=== PATIENT | female | born 1980 | race Caucasian/White ===

== ENCOUNTER 2016-09-12 08:44 | Day surgery (SDC) | payer MEDICAID ==
--- NOTE | 2016-09-12 07:14 | PCM.HP ---
H&P History of Present Illness - General Date of Service: 09/12/16 Source of Information: Patient History Limitations: Reports: No limitations - History of Present Illness Initial Comments - Free Text/Narative: CC : Hemorrhoids HPI The patient is a 35-year-old female referred by Ivon Yancey NP for hemorrhoid evaluation. Patient is known to the clinic. Dr. Giles completed a stab phlebectomy on a left lower leg vein 03/2014 I last saw the patient 08/06/16. She denies any changes since that visit. she did have an enlarged hemorrhoidal skin tag at that visit vs. slightly enlarged hemorrhoid. I did recommend conservative hemorrhoid therapy until endoscopy. She also reported reflux/heartburn. GERD/gastritis diet and prn Zantac were recommended. Has had hemorrhoids since first child at 16, have gotten worse. Will still have rectal bleeding off and on with increased stooling. In May had blood "gushing for a week." Had an enlarged hemorrhoid at that time. Was told she had an internal hemorrhoid at her last visit. Stools were soft at that time. Had lots of blood in the toilet at that time. Has tried Tucks, sitz baths, Aquaphor , without relief. Hemorrhoids are not painful. She can feel them when she sits. She feels pressure. A little dizziness when she had the large volume rectal bleeding. This has resolved. Has no rectal pain now, only with frequent stooling. The patient denies any constipation/ diarrhea. Uncertain if she had hematochezia in May. NO: melena. Has hx of blood on tissue paper, in May or with more frequent stools. Has internal and external hemorrhoids. Has 3 soft, brown, formed, BMs daily. Bowel movements are described as regular and easy to pass. No unintentional weight loss. No change in stool caliber. Denies history of ulcerative colitis or Crohn's disease. Denies any family history of inflammatory bowel disease or GI cancers.Last colonoscopy was never. . Reflux, heartburn after stopping Paxil, Taking Tums daily. Spicy foods/tomatoes worsen symptoms or really anything with worsen symptoms lately. NO: nausea, vomiting, or dysphagia. Last mammogram was never. Family hx of breast cancer in paternal grandmother. - Related Data Allergies/Adverse Reactions: Allergies Allergy/AdvReac Type Severity Reaction Status Date / Time levofloxacin [From Levaquin] Allergy Rash Verified 09/11/16 16:35 Home Medications: Home Meds Multivitamin [Multi-Vitamin Daily] 1 tab PO DAILY 03/22/14 [History] Ondansetron [Zofran ODT] 4 mg PO Q6H PRN #30 tab.dis 03/23/14 [Rx] Fluticasone Propionate [Flonase] 1 spray NASBOTH ASDIRECTED PRN 09/11/16 [ History] LORazepam [Ativan] 1 mg PO ASDIRECTED PRN 09/11/16 [History] Levonorgestrel [Mirena] 1 each VAG ASDIRECTED 09/11/16 [History] Past Medical History HEENT History: Reports: Other (see below) Other HEENT History: episcleritis, glasses Cardiovascular History: Reports: Other (see below) Other Cardiovascular History: varicose veins with phlebectomy to left lower leg Respiratory History: Reports: None, Other (see below) (sleep apnea) Gastrointestinal History: Reports: Other (see below) Other Gastrointestinal History: acid reflux Genitourinary History: Reports: None 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: Musculoskeletal History: Reports: None Neurological History: Reports: None Psychiatric History: Reports: None Endocrine/Metabolic History: Reports: Obesity/BMI 30+ Hematologic History: Reports: None Immunologic History: Reports: None Oncologic (Cancer) History: Reports: None Dermatologic History: Reports: None - Past Surgical History Head Surgeries/Procedures: Reports: None HEENT Surgical History: Reports: Adenoidectomy, Tonsillectomy Social & Family History - Tobacco Use Smoking Status *Q: Never Smoker - Alcohol Use Days Per Week of Alcohol Use: 0 Number of Drinks Per Day: 0 Total Drinks Per Week: 0 - Recreational Drug Use Recreational Drug Use: No Drug Use in Last 12 Months: No H&P Review of Systems - Review of Systems: Review Of Systems: See Below Free Text/Narrative: Denies any exertional chest pain or shortness of breath. No history of any easy bleeding or bruising. No personal or familial history of clotting or bleeding disorders. No history of anesthetic complications, PONV. No history of familial anesthetic complications. Denies presence/history of chest pain, palpitations, lower extremity edema, dyspnea, orthopnea, claudication, wheezing. Did have a sleep study that showed obstructive sleep apnea. NO: chronic cough, upper respiratory symptoms in the last two weeks. No history of blood thinner use. No history of anemia.. No history of seizure or stroke. No history of fever, chills, or nightsweats. No prior cardiology or pulmonology evaluation. All other systems reviewed and were negative except as per history of present illness. General: Reports: no symptoms HEENT: Reports: no symptoms Pulmonary: Reports: No Symptoms Cardiovascular: Reports: no symptoms Gastrointestinal: Reports: Other (see HPI) Genitourinary: Reports: no symptoms Musculoskeletal: Reports: no symptoms Skin: Reports: no symptoms Psychiatric: Reports: no symptoms Neurological: Reports: No Symptoms Hematologic/Lymphatic: Reports: no symptoms Immunologic: Reports: no symptoms Exam - Exam Exam: See Below - Exam General: alert, oriented HEENT: Conjunctiva clear, Hearing intact Lungs: Other (see anesthesia assessement) Cardiovascular: other (see anesthesia assessment) Abdomen: soft. No: distention Extremities: normal inspection. No: clubbing, cyanosis *Q Meaningful Use (ADM) - VTE *Q VTE Criteria *Q: - Stroke *Q Stroke Criteria *Q: - AMI *Q AMI Criteria *Q: Problem List Initiated/Reviewed/Updated: Yes Orders Last 24hrs: Active Orders 24 hr Category Date Time Status Peripheral IV Care [RC] . DIRECTED Care 09/12/16 00:01 Active Verify Patient Consent Obtain [RC] ASDIRECTED Care 09/12/16 00:01 Active HCG QUALITATIVE,URINE [URCHEM] Stat Lab 09/12/16 00:01 Uncollected Lactated Ringers [Ringers, Lactated] 1,000 ml Med 09/12/16 00:01 Active IV ASDIRECTED Lidocaine 1%/Sod Bicarbonate [Buffered Lidocaine 1% in Med 09/12/16 00:01 Active NS 8.4%] 0.25 ml IV ONETIME PRN Sodium Chloride 0.9% [Saline Flush] Med 09/12/16 00:01 Active 10 ml FLUSH ASDIRECTED PRN Medication Administration Instruction [OM.PC] Routine Oth 09/12/16 00:01 Ordered Peripheral IV Insertion Adult [OM.PC] Routine Oth 09/12/16 00:01 Ordered Medication Orders Lactated Ringer's (Ringers, Lactated) 1,000 mls @ 125 mls/hr IV ASDIRECTED YEIMY Stop: 09/12/16 23:00 Lidocaine/Sodium Bicarbonate (Buffered Lidocaine 1% In Ns 8.4%) 0.25 ml IV ONETIME PRN PRN Reason: Prior to IV Start Stop: 09/12/16 18:00 Sodium Chloride (Saline Flush) 10 ml FLUSH ASDIRECTED PRN PRN Reason: Keep Vein Open Stop: 09/12/16 18:00 Assessment/Plan Comment:: 35yr female with rectal bleeding, hx of internal hemorrhoids, external hemorrhoidal skin tag versus slightly enlarged hemorrhoid, reflux, heartburn, need for EGD, diagnostic colonoscopy with excision of hemorrhoidal skin tag and possible banding of internal hemorrhoids Patient can perform 4 METS of physical activity without chest pain or shortness of breath. Recent diagnosis of sleep apnea PLAN: We discussed performing a diagnostic EGD and diagnostic colonoscopy with excision of hemorrhoidal skin tag, possible banding of internal hemorrhoids. We discussed the procedure and post operative expectations. Patient has completed full colonoscopy prep. . This procedure will be done today at [facility], due to BMI of 53.52. Lluvia Hall NP -C General Surgery
[~2016-09-12 08:44] MED LIST: Lactated Ringers 1,000 ML IV SCH; Lidocaine 1%/Sod Bicarbonate in NS 8.4% 1 ML Syringe IV PRN; Sodium Chloride 0.9% 10 ML Syringe FLUSH PRN
--- NOTE | 2016-09-12 10:06 | PCM.PREANE ---
Preanesthetic Assessment - Physical Assessment Height: 1.68 m Weight: 147.871 kg - Lab Values: Laboratory Last Values Urine HCG, Qual Negative (NEGATIVE) 09/12/16 09:27 - Allergies Allergies/Adverse Reactions: Allergies Allergy/AdvReac Type Severity Reaction Status Date / Time levofloxacin [From Levaquin] Allergy Rash Verified 09/11/16 16:35 PreAnesthesia Questionnaire HEENT History: Reports: Other (see below) Other HEENT History: episcleritis, glasses Cardiovascular History: Reports: Other (see below) Other Cardiovascular History: varicose veins with phlebectomy to left lower leg Respiratory History: Reports: None Gastrointestinal History: Reports: Other (see below) Other Gastrointestinal History: acid reflux Genitourinary History: Reports: None 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: Musculoskeletal History: Reports: None Neurological History: Reports: None Psychiatric History: Reports: None Endocrine/Metabolic History: Reports: Obesity/BMI 30+ Hematologic History: Reports: None Immunologic History: Reports: None Oncologic (Cancer) History: Reports: None Dermatologic History: Reports: None - Past Surgical History Head Surgeries/Procedures: Reports: None HEENT Surgical History: Reports: Adenoidectomy, Tonsillectomy - SUBSTANCE USE Smoking Status *Q: Never Smoker Second Hand Smoke Exposure: No Days Per Week of Alcohol Use: 0 Number of Drinks Per Day: 0 Total Drinks Per Week: 0 Recreational Drug Use History: No - HOME MEDS Home Medications: Home Meds Multivitamin [Multi-Vitamin Daily] 1 tab PO DAILY 03/22/14 [History] Ondansetron [Zofran ODT] 4 mg PO Q6H PRN #30 tab.dis 03/23/14 [Rx] Fluticasone Propionate [Flonase] 1 spray NASBOTH ASDIRECTED PRN 09/11/16 [ History] LORazepam [Ativan] 1 mg PO ASDIRECTED PRN 09/11/16 [History] Levonorgestrel [Mirena] 1 each VAG ASDIRECTED 09/11/16 [History] - CURRENT (IN HOUSE) MEDS Current Meds: Current Medications Lactated Ringer's (Ringers, Lactated) 1,000 mls @ 125 mls/hr IV ASDIRECTED YEIMY Stop: 09/12/16 23:00 Last Admin: 09/12/16 09:40 Dose: 125 mls/hr Lidocaine/Sodium Bicarbonate (Buffered Lidocaine 1% In Ns 8.4%) 0.25 ml IV ONETIME PRN PRN Reason: Prior to IV Start Stop: 09/12/16 18:00 Last Admin: 09/12/16 09:40 Dose: 0.25 ml Sodium Chloride (Saline Flush) 10 ml FLUSH ASDIRECTED PRN PRN Reason: Keep Vein Open Stop: 09/12/16 18:00 Preanesthetic Assessment - ANESTHESIA/TRANSFUSION/FAMILY HX Anesthesia/Transfusion History: No Prior Transfusion(s), Prior Anesthesia Type of Anesthesia Reaction: Reports: Excessive Nausea/Vomiting Family History of Anesthesia Reaction: No Intubation History: Unknown Type of Transfusion Reactions: Reports: Unknown - REVIEW OF SYSTEMS Constitutional: Reports: no symptoms 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 Respiratory: Reports: no symptoms Cardiovascular: Reports: no symptoms GI: Reports: no symptoms Other: Reports: None - PHYSICAL ASSESSMENT HR: 67 O2 Sat by Pulse Oximetry: 97 RR: 16 BP: 107/54 Temp: 36.7 C Height: 1.68 m Weight: 147.871 kg NPO Status Date: 09/11/16 NPO Status Time: 21:30 ASA Class: 2 Mental Status: Alert & Oriented x3 Airway Class: Mallampati = 2 Dentition: Reports: Normal Dentition Thyro-Mental Finger Breadths: 3 Mouth Opening Finger Breadths: 3 ROM/Head Extension: Full Respiratory Status: lungs clear to auscultation bilaterally Cardiovascular Status: regular rate & rhythm, normal S1, S2, no murmur, blood pressure WNL - LAB Values: Laboratory Last Values Urine HCG, Qual Negative (NEGATIVE) 09/12/16 09:27 - ALLERGIES Allergies/Adverse Reactions: Allergies Allergy/AdvReac Type Severity Reaction Status Date / Time levofloxacin [From Levaquin] Allergy Rash Verified 09/11/16 16:35 - BLOOD Blood Available: No Product(s) Available: None - ANESTHESIA PLAN Preop Beta Sandip: No Anesthesia Type Planned: MAC - ACKNOWLEDGEMENTS Pt an Appropriate Candidate for the Planned Anesthesia: Yes Alternatives and Risks of Anesthesia Discussed w Pt/Guardian: Yes Pt/Guardian Understands and Agrees with Anesthesia Plan: Yes
[2016-09-12] MEDS ORDERED: Propofol 200 MG/20 ML SDV ONE ×2 (10:55→11:30)
[2016-09-12] MEDS ORDERED: Lidocaine 1% 4 ML ONE (10:55)
[2016-09-12] MEDS ORDERED: Midazolam 1 MG/ML 2 ML SDV ONE (10:55)
[2016-09-12] MEDS ORDERED: fentaNYL 100 MCG/2 ML SDV ONE (10:55)
--- NOTE | 2016-09-12 11:40 | PCM48HPAN ---
Post Anesthesia Note - EVALUATION WITHIN 48HRS OF ANESTHETIC Vital Signs in Normal Range: Yes Patient Participated in Evaluation: Yes Respiratory Function Stable: Yes Airway Patent: Yes Cardiovascular Function Stable: Yes Hydration Status Stable: Yes Pain Control Satisfactory: Yes Nausea and Vomiting Control Satisfactory: Yes Mental Status Recovered: Yes
--- NOTE | 2016-09-12 11:41 | PCM.OPNOTE ---
- General Post-Op/Procedure Note Date of Surgery/Procedure: 09/12/16 Operative Procedure(s): 1. Diagnostic EGD with cold forceps biopsy. 2. Diagnostic colonoscopy with cold forceps polypectomy and hemorrhoidal banding Pre Op Diagnosis: Heartburn, rectal bleeding, possible hematochezia Post-Op Diagnosis: Gastritis, splenic flexure colon polyp, external hemorrhoids , internal hemorrhoids grade 2, mild diverticulosis Anesthesia Technique: MAC Primary Surgeon: Daphne Giles Anesthesia Provider: Kings Edwards Pathology: 1. Small bowel biopsy 2. Antral biopsy 3. Distal esophageal biopsy 4. Splenic flexure colon polyp Fluid Replacement, Intraop: 400 (mL crystalloid) EBL in mLs: 1 Complications: None Condition: Good Free Text/Narrative:: INDICATION FOR PROCEDURE: The patient is a 35-year-old woman referred by PATRICIA Black for hemorrhoidal evaluation. The patient has been having rectal bleeding. The patient is also have persistent heartburn and taking Tums daily. She does have a recent history of rectal pain, however that is improved today. She has never had an EGD or colonoscopy. Performing a colonoscopy and EGD and the associated risks of the procedures had been discussed with the patient. The patient found these risks acceptable and agreed to proceed. DESCRIPTION OF PROCEDURE: The patient was taken to the operating room and placed in the left lateral decubitus position. After induction of adequate sedation, a bite block was placed. A standard Olympus gastroscope was inserted into the oropharynx and guided down the esophagus without difficulty. The gastroesophageal junction was appreciated at 36 cm from the teeth. There was no evidence of stricture or esophageal ulcerations. The scope was advanced into the stomach, and there was mild gastritis. The scope was passed into the proximal jejunum and the duodenum which were unremarkable. There were no petechiae or ulcerations. The proximal jejunum was grossly normal in appearance. Multiple cold forceps biopsies were obtained of the proximal jejunum and duodenum. The scope was withdrawn into the antrum, and additional cold forceps biopsies were obtained. The remainder of the gastric body was examined, and there were no other abnormalities. The scope was retroflexed, and there was no evidence of hiatal hernia. The scope was straightened and withdrawn to the GE junction. Additional cold forceps biopsies were obtained of the distal esophagus. The scope was withdrawn through the remainder of the esophagus and no further abnormalities were noted. The posterior oropharynx was grossly normal in appearance. The scope was fully withdrawn and attention was then turned to the colonoscopy. A digital rectal exam was performed which showed a small anterior hemorrhoidal skin tag, but posteriorly there was an enlarged external hemorrhoid. An Olympus colonoscope was inserted into the rectum and guided under direct visualization to the appendiceal orifice and ileocecal valve. The scope was then slowly withdrawn through the colon. The quality of the prep was excellent. There was no evidence of angiodysplasias. There was a sessile small polyp at the splenic flexure, this was removed using cold forceps. There was mild diverticulosis at the rectosigmoid junction. The scope was withdrawn into the rectum and retroflexed. There was some prominence of the patient's internal hemorrhoids, hemorrhoidal banding was performed. The scope was straightened, the colon was desufflated, and the scope was withdrawn. The patient was awakened from sedation and transferred to the recovery room in stable condition having tolerated the procedure well. POSTOPERATIVE PLAN: I discussed with the patient's family my intraoperative findings and recommendations. The patient will follow up in approximately 7-10 days to discuss pathology and how their symptoms are progressing. The patient is to start taking her Ranitidine 150 mg daily. I have asked the patient to follow a GERD\gastritis diet. Hemorrhoidal banding instructions were also provided. The patient is to call with any worsening of symptoms or questions prior to the appointment.
[2016-09-12 11:44] VITALS: BP 115/53
[2016-09-12] MEDS ORDERED: Lactated Ringers 1,000 ML ONE (11:44)
== END 2016-09-12 12:11 | disposition home or self-care (01) ==
LOC: JD.SDS 08:44
PROVIDERS: ATTEND Surgery
DX: K29.50 Unspecified chronic gastritis without bleeding (principal); K20.9 Esophagitis, unspecified; K63.5 Polyp of colon; K57.30 Diverticulosis of large intestine without perforation or abscess without bleeding; Z88.1 Allergy status to other antibiotic agents
CPT/HCPCS: 43239; 45380; 46946; 81025; J2250; J3010; J7120; 00810; J2704

== ENCOUNTER 2016-10-31 09:07 | Day surgery (SDC) | payer MEDICAID ==
[~2016-10-31 09:07] MED LIST changes: +cefOXitin 2 GM in Premix Bag 1 BAG IV ONE
--- NOTE | 2016-10-31 09:14 | PCM.OPNOTE ---
- General Post-Op/Procedure Note Date of Surgery/Procedure: 10/31/16 Operative Procedure(s): Ligasure hemorrhoidectomy with excision of left thigh skin tag Pre Op Diagnosis: Grade II internal hemorrhoids, enlarged external hemorrhoids Post-Op Diagnosis: Same Anesthesia Technique: General ET tube, Local Primary Surgeon: Daphne Giles Anesthesia Provider: Huong Maria Auto Fleet Maintenance Manager: Soo Padilla Auto Fleet Maintenance Manager: Lluvia Hall Fluid Replacement, Intraop: 1,600 (mL crystalloid ) EBL in mLs: 5 Complications: None Condition: Good Free Text/Narrative:: INDICATION FOR PROCEDURE: The patient is a 35-year-old woman who I had seen in referral by PATRICIA Black for evaluation of hemorrhoids. The patient had undergone diagnostic colonoscopy and was noted to have a significantly enlarged external and internal hemorrhoids in August. Hemorrhoidal banding was performed and the patient was placed on a hemorrhoidal care regimen, however her hemorrhoids had failed to resolve completely and she was still fairly symptomatic from them. Hemorrhoidectomy was discussed with the patient and she desired to proceed. DESCRIPTION OF PROCEDURE: The patient was taken to the operating room and placed in the left lateral decubitus position in slight jackknife after induction of general anesthesia. Cefoxitin was administered for antibiotic prophylaxis. The gluteal and perianal area were prepped and draped in the usual sterile fashion with Betadine after tape was applied to retract the bilateral gluteus. There was a small skin tag present on the patient's proximal left posterior thigh. This was removed using electrocautery after injecting local anesthetic. This was not sent as specimen. Attention was then turned to the patient's hemorrhoids. The patient had an enlarged left lateral and right posterior hemorrhoid complexes. The right anterior hemorrhoidal complex was fairly unremarkable. The left lateral and right posterior internal and external hemorrhoidal complexes were grasped and elevated using Allis clamp. They were then excised using the LigaSure device. Hemostasis was confirmed. Local anesthetic was injected in a perianal block. Gelfoam soaked in thrombin was placed within the anal canal. Mesh panties with a pad and a dressing of 4 x 4's was placed. The patient was awakened from anesthesia, extubated and transferred to the recovery room in stable condition having tolerated the procedure well. Sponge and instrument counts were reported as correct at the end of the case. POSTOPERATIVE PLAN: The patient will follow up in approximately 2-3 weeks for a postoperative check. She has been given metronidazole ointment to apply 3 times daily for pain relief as well as dibucaine ointment. She is to perform sitz baths 3 times a day and as frequently as needed for pain relief. Percocet 5/325mg, #40, and senna-S have been provided as well as recommendations for continuation of MiraLAX to prevent any constipation. She is to call the office with any questions or concerns. She has been advised to anticipate some rectal bleeding. The skilled assistance of my assembler surgical garment, PATRICIA Puckett, was necessary because a qualified resident was not available. She participated in positioning of the patient, assistance with the procedure with retraction, and dressing application.
--- NOTE | 2016-10-31 09:21 | PCM.PREANE ---
Preanesthetic Assessment - Anesthesia/Transfusion/Family Hx Anesthesia History: Prior Anesthesia Reaction Type of Anesthesia Reaction: Excessive Nausea/Vomiting Family History of Anesthesia Reaction: No Transfusion History: No Prior Transfusion(s) Type of Transfusion Reactions: Reports: Unknown - Review of Systems General: No Symptoms Pulmonary: No Symptoms Cardiovascular: No Symptoms Gastrointestinal: No symptoms Neurological: No Symptoms Other: Reports: None - Physical Assessment NPO Status Date: 10/30/16 NPO Status Time: 22:00 Pulse: 59 O2 Sat by Pulse Oximetry: 100 Respiratory Rate: 16 Blood Pressure: 136/80 Temperature: 97.1 F Height: 5 ft 6 in Weight: 147.871 kg ASA Class: 2 Mental Status: Alert & Oriented x3 Airway Class: Mallampati = 2 Dentition: Reports: Normal Dentition Thyro-Mental Finger Breadths: 3 Mouth Opening Finger Breadths: 3 ROM/Head Extension: Full Lungs: Clear to auscultation, Normal respiratory effort Cardiovascular: Regular Rate, Regular Rhythm - Allergies Allergies/Adverse Reactions: Allergies Allergy/AdvReac Type Severity Reaction Status Date / Time levofloxacin [From Levaquin] Allergy Rash Verified 10/30/16 16:24 - Blood Blood Available: No - Anesthesia Plan Pre-Op Medication Ordered: None - Acknowledgements Anesthesia Type Planned: General Anesthesia Pt an Appropriate Candidate for the Planned Anesthesia: Yes Alternatives and Risks of Anesthesia Discussed w Pt/Guardian: Yes Pt/Guardian Understands and Agrees with Anesthesia Plan: Yes PreAnesthesia Questionnaire HEENT History: Reports: Other (See Below) Other HEENT History: episcleritis, glasses Cardiovascular History: Reports: Other (See Below) Other Cardiovascular History: varicose veins with phlebectomy to left lower leg Respiratory History: Reports: None, Sleep Apnea, Other (See Below) Gastrointestinal History: Reports: Gastritis, Hemorrhoids, Helicobacter Pylori, Other (See Below) Other Gastrointestinal History: intestinal metaplasia, esophagitis, diverticulosis Genitourinary History: Reports: None 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: Musculoskeletal History: Other Musculoskeletal History: plantar fasciitis Neurological History: Reports: None Psychiatric History: Reports: None, Depression Endocrine/Metabolic History: Reports: Obesity/BMI 30+ Hematologic History: Reports: None, Other (See Below) Other Hematologic History: stab phlebectomy Immunologic History: Reports: None Oncologic (Cancer) History: Reports: None Dermatologic History: Reports: None - Past Surgical History Head Surgeries/Procedures: Reports: None HEENT Surgical History: Reports: Adenoidectomy, Tonsillectomy GI Surgical History: Reports: Colonoscopy, EGD - SUBSTANCE USE Smoking Status *Q: Never Smoker Tobacco Use Within Last Twelve Months: No Second Hand Smoke Exposure: No Days Per Week of Alcohol Use: 0 Number of Drinks Per Day: 0 Total Drinks Per Week: 0 Recreational Drug Use History: No - HOME MEDS Home Medications: Home Meds Levonorgestrel [Mirena] 1 each VAG ASDIRECTED 09/11/16 [History] Ranitidine [Zantac] 150 mg PO BID #60 tab 09/12/16 [Rx] Celecoxib 200 mg PO DAILY 10/30/16 [History] Multivitamin [Multivitamins] 1 tab PO DAILY 10/30/16 [History] Naltrexone HCl/Bupropion HCl [Contrave ER 8-90 mg Tablet] 1 tab PO BID PRN 10/30 [History] Omeprazole 20 mg PO DAILY 10/30/16 [History] - CURRENT (IN HOUSE) MEDS Current Meds: Current Medications Lactated Ringer's (Ringers, Lactated) 1,000 mls @ 125 mls/hr IV ASDIRECTED YEIMY Stop: 10/31/16 23:00 Cefoxitin Sodium 2 gm/ Premix 50 mls @ 100 mls/hr IV ONETIME ONE Stop: 10/31/16 09:29 Lidocaine/Sodium Bicarbonate (Buffered Lidocaine 1% In Ns 8.4%) 0.25 ml IV ONETIME PRN PRN Reason: Prior to IV Start Stop: 10/31/16 18:00 Sodium Chloride (Saline Flush) 10 ml FLUSH ASDIRECTED PRN PRN Reason: Keep Vein Open Stop: 10/31/16 18:00
[2016-10-31] MEDS ORDERED: Bupivacaine 0.5%/EPINEPHrine 1:200,000 50 ML MDV ONE (09:22)
[2016-10-31] MEDS ORDERED: Lidocaine 1% with EPINEPHrine 1:100,000 20 ML MDV ONE (09:22)
[2016-10-31] MEDS ORDERED: Ondansetron 4 MG/2 ML SDV ONE (09:28)
[2016-10-31] MEDS ORDERED: Propofol 200 MG/20 ML SDV ONE (09:28)
[2016-10-31] MEDS ORDERED: ceFAZolin 1 GM Vial ONE (09:28)
[2016-10-31] MEDS ORDERED: Rocuronium 50 MG/5 ML Vial ONE (09:28)
[2016-10-31] MEDS ORDERED: fentaNYL 250 MCG/5 ML SDV ONE (09:29)
[2016-10-31] MEDS ORDERED: Scopolamine 1.5 MG Transdermal Patch TRDERM ONE (09:39)
[2016-10-31] MEDS ORDERED: Midazolam 1 MG/ML 2 ML SDV ONE (09:55)
[2016-10-31] MEDS ORDERED: Thrombin (Bovine) 5,000 Unit Kit ONE (10:47)
[2016-10-31] MEDS ORDERED: Metoclopramide 10 MG/2 ML SDV IVPUSH PRN (10:48)
[2016-10-31] MEDS ORDERED: Ondansetron 4 MG/2 ML SDV IVPUSH PRN (10:48)
[2016-10-31] MEDS ORDERED: fentaNYL 100 MCG/2 ML SDV IVPUSH PRN (10:48)
[2016-10-31] MEDS ORDERED: Dexamethasone 4 MG/ML 5 ML MDV ONE (11:09)
--- NOTE | 2016-10-31 11:30 | PCM.POSTAN ---
POST ANESTHESIA ASSESSMENT - MENTAL STATUS Mental Status: alert, oriented - VITAL SIGNS Pulse Rate: 77 SaO2: 100 Resp Rate: 16 Blood Pressure: 142/66 Temperature: 36.6 C - RESPIRATORY Respiratory Status: respiratory rate WNL, airway patent, O2 saturation stable, supplemental oxygen - CARDIOVASCULAR CV Status: pulse rate WNL, blood pressure stable - GASTROINTESTINAL GI Status: no symptoms - PAIN Pain Score: 0 - POST OP HYDRATION Hydration Status: adequate & stable
[2016-10-31] MEDS ORDERED: HYDROmorphone 0.5 MG/0.5 ML Syringe IVPUSH PRN (11:50)
[2016-10-31 12:43] VITALS: BP 118/66
== END 2016-10-31 13:05 | disposition home or self-care (01) ==
LOC: JD.SDS 09:07
PROVIDERS: ATTEND Surgery
DX: K64.4 Residual hemorrhoidal skin tags (principal); K64.1 Second degree hemorrhoids; K64.8 Other hemorrhoids; G47.33 Obstructive sleep apnea (adult) (pediatric); F32.9 Major depressive disorder, single episode, unspecified; E66.9 Obesity, unspecified
CPT/HCPCS: 46260; 81025; 88304; A9270; J0694; J1100; J2250; J2405; J3010; J7120; 00902; J0690; J2704

== ENCOUNTER 2017-05-26 19:44 | Emergency (ER) | payer MEDICAID ==
[2017-05-26 19:59] VITALS: BP 122/64
--- NOTE | 2017-05-26 20:01 | EDM.PDOC ---
ED HPI GENERAL MEDICAL PROBLEM - General Chief Complaint: Abdominal Pain Stated Complaint: PELVIC PAIN ON THE LEFT SIDE Time Seen by Provider: 05/26/17 19:59 - History of Present Illness INITIAL COMMENTS - FREE TEXT/NARRATIVE: 36-year-old female presents emergency room with a couple day history of worsening left lower quadrant pain. This is been getting worse the last couple days patient cannot recall what makes it worse she's having normal bowel movements. She has not noticed any blood in her stool. She denies being has not ED in place she has not had any fevers or chills. She has not had any associated nausea vomiting constipation diarrhea her periods have not been abnormal. Left Lower Abdomen Pain Score (Numeric/FACES): 2 - Related Data Allergies Allergy/AdvReac Type Severity Reaction Status Date / Time levofloxacin [From Levaquin] Allergy Rash Verified 05/26/17 19:59 Home Meds: Home Meds Celecoxib 200 mg PO DAILY 10/30/16 [History] Multivitamin [Multivitamins] 1 tab PO DAILY 10/30/16 [History] Omeprazole 20 mg PO DAILY 10/30/16 [History] Sulfamethoxazole/Trimethoprim [Bactrim Ds Tablet] 1 each PO Q12H #20 tablet 04/02 [Rx] metroNIDAZOLE [Flagyl] 500 mg PO Q8H #30 tablet 05/26/17 [Rx] Past Medical History HEENT History: Reports: Other (See Below) Other HEENT History: episcleritis, glasses Cardiovascular History: Reports: Other (See Below) Other Cardiovascular History: varicose veins with phlebectomy to left lower leg Respiratory History: Reports: None, Sleep Apnea, Other (See Below) Gastrointestinal History: Reports: Gastritis, Hemorrhoids, Helicobacter Pylori, Other (See Below) Other Gastrointestinal History: intestinal metaplasia, esophagitis, diverticulosis Genitourinary History: Reports: None TUB MENDER History: Reports: Musculoskeletal History: Other Musculoskeletal History: plantar fasciitis Neurological History: Reports: None Psychiatric History: Reports: None, Depression Endocrine/Metabolic History: Reports: Obesity/BMI 30+ Hematologic History: Reports: None, Other (See Below) Other Hematologic History: stab phlebectomy Immunologic History: Reports: None Oncologic (Cancer) History: Reports: None Dermatologic History: Reports: None - Past Surgical History Head Surgeries/Procedures: Reports: None HEENT Surgical History: Reports: Adenoidectomy, Tonsillectomy GI Surgical History: Reports: Colonoscopy, EGD Social & Family History - Tobacco Use Smoking Status *Q: Never Smoker Second Hand Smoke Exposure: No - Alcohol Use Days Per Week of Alcohol Use: 0 Number of Drinks Per Day: 0 Total Drinks Per Week: 0 - Recreational Drug Use Recreational Drug Use: No Drug Use in Last 12 Months: No ED ROS GENERAL - Review of Systems Review Of Systems: See Below Constitutional: Reports: No Symptoms HEENT: Reports: No Symptoms Respiratory: Reports: No Symptoms Cardiovascular: Reports: No Symptoms Endocrine: Reports: No Symptoms GI/Abdominal: Reports: Abdominal Pain. Denies: Black Stool, Bloody Stool, Constipation, Diarrhea, Nausea, Vomiting : Reports: No Symptoms Musculoskeletal: Reports: No Symptoms Skin: Reports: No Symptoms Neurological: Reports: No Symptoms Psychiatric: Reports: No Symptoms ED EXAM, GI/ABD - Physical Exam Exam: See Below Exam Limited By: No Limitations General Appearance: Alert, No Apparent Distress Eyes: Bilateral: Normal Appearance Respiratory/Chest: No Respiratory Distress, Lungs Clear, Normal Breath Sounds Cardiovascular: Regular Rate, Rhythm, No Edema, No Murmur GI/Abdominal Exam: Normal Bowel Sounds, Soft, Tender (Tenderness the left lower quadrant no rigidity rebound or guarding appreciated with this) Back Exam: CVA Tenderness (L), CVA Tenderness (R). No: Normal Inspection Extremities: No Pedal Edema Neurological: Alert, Oriented, Normal Cognition Course - Vital Signs Last Recorded V/S: Last Vital Signs Temp 36.4 C 05/26/17 19:54 Pulse 81 05/26/17 19:54 Resp 18 05/26/17 19:54 BP 122/64 05/26/17 19:54 Pulse Ox 100 05/26/17 19:54 - Orders/Labs/Meds Orders: Active Orders 24 hr Category Date Time Status Abdomen 2V AP Flat Upright [CR] Stat Exams 05/26/17 20:26 Taken Abdomen Pelvis w Cont [CT] Stat Exams 05/26/17 21:24 Taken metroNIDAZOLE [Flagyl] Med 05/26/17 23:49 Once 500 mg PO ONETIME ONE Medication Orders Metronidazole (Flagyl) 500 mg PO ONETIME ONE Stop: 05/26/17 23:50 Labs: Laboratory Tests 05/26/17 05/26/17 05/26/17 Range/Units 20:26 20:26 20:45 WBC 12.31 H (3.98-10.04) K/mm3 RBC 4.20 (3.98-5.22) M/mm3 Hgb 13.3 (11.2-15.7) gm/L Hct 39.0 (34.1-44.9) % MCV 92.9 (79.4-94.8) fl MCH 31.7 (25.6-32.2) pg MCHC 34.1 (32.2-35.5) g/dl RDW Std Deviation 43.3 (36.4-46.3) fL Plt Count 264 (182-369) K/mm3 MPV 7.9 L (9.4-12.3) fl Neutrophils % (Manual) 74 H (40-60) % Band Neutrophils % 0 (0-10) % Lymphocytes % (Manual) 22 (20-40) % Atypical Lymphs % 0 % Monocytes % (Manual) 2 (2-10) % Eosinophils % (Manual) 2 (0.7-5.8) % Basophils % (Manual) 0 L (0.1-1.2) Platelet Estimate Adequate RBC Morph Comment Normal Sodium (136-145) mEq/L Potassium (3.5-5.1) mEq/L Chloride (98-107) mEq/L Carbon Dioxide (21-32) mEq/L Anion Gap (5-15) BUN (7-18) mg/dL Creatinine (0.55-1.02) mg/dL Est Cr Clr Drug Dosing mL/min Estimated GFR (MDRD) (>60) mL/min BUN/Creatinine Ratio (14-18) Glucose (74-106) mg/dL Calcium (8.5-10.1) mg/dL Total Bilirubin (0.2-1.0) mg/dL AST (15-37) U/L ALT (14-59) U/L Alkaline Phosphatase (46-116) U/L Total Protein (6.4-8.2) g/dl Albumin (3.4-5.0) g/dl Globulin gm/dL Albumin/Globulin Ratio (1-2) Urine Color Yellow (Yellow) Urine Appearance Slt cloudy H (Clear) Urine pH 6.0 (5.0-8.0) Ur Specific Terrell > or = 1.030 (1.005-1.030) Urine Protein Negative (Negative) Urine Glucose (UA) Negative (Negative) Urine Ketones Negative (Negative) Urine Occult Blood Trace-lysed H (Negative) Urine Nitrite Negative (Negative) Urine Bilirubin Negative (Negative) Urine Urobilinogen 0.2 (0.2-1.0) Ur Leukocyte Esterase Negative (Negative) Urine RBC 5-10 H (0-5) /hpf Urine WBC 0-5 (0-5) /hpf Ur Epithelial Cells 5-10 H (0-5) /hpf Urine Bacteria Few (FEW) /hpf Urine Mucus Moderate H (FEW) /hpf Urine HCG, Qual Negative (NEGATIVE) 05/26/17 Range/Units 20:45 WBC (3.98-10.04) K/mm3 RBC (3.98-5.22) M/mm3 Hgb (11.2-15.7) gm/L Hct (34.1-44.9) % MCV (79.4-94.8) fl MCH (25.6-32.2) pg MCHC (32.2-35.5) g/dl RDW Std Deviation (36.4-46.3) fL Plt Count (182-369) K/mm3 MPV (9.4-12.3) fl Neutrophils % (Manual) (40-60) % Band Neutrophils % (0-10) % Lymphocytes % (Manual) (20-40) % Atypical Lymphs % % Monocytes % (Manual) (2-10) % Eosinophils % (Manual) (0.7-5.8) % Basophils % (Manual) (0.1-1.2) Platelet Estimate RBC Morph Comment Sodium 143 (136-145) mEq/L Potassium 4.0 (3.5-5.1) mEq/L Chloride 106 (98-107) mEq/L Carbon Dioxide 27 (21-32) mEq/L Anion Gap 14.0 (5-15) BUN 13 (7-18) mg/dL Creatinine 1.0 (0.55-1.02) mg/dL Est Cr Clr Drug Dosing 72.11 mL/min Estimated GFR (MDRD) > 60 (>60) mL/min BUN/Creatinine Ratio 13.0 L (14-18) Glucose 86 (74-106) mg/dL Calcium 8.7 (8.5-10.1) mg/dL Total Bilirubin 0.3 (0.2-1.0) mg/dL AST 18 (15-37) U/L ALT 30 (14-59) U/L Alkaline Phosphatase 105 (46-116) U/L Total Protein 7.3 (6.4-8.2) g/dl Albumin 3.5 (3.4-5.0) g/dl Globulin 3.8 gm/dL Albumin/Globulin Ratio 0.9 L (1-2) Urine Color (Yellow) Urine Appearance (Clear) Urine pH (5.0-8.0) Ur Specific Terrell (1.005-1.030) Urine Protein (Negative) Urine Glucose (UA) (Negative) Urine Ketones (Negative) Urine Occult Blood (Negative) Urine Nitrite (Negative) Urine Bilirubin (Negative) Urine Urobilinogen (0.2-1.0) Ur Leukocyte Esterase (Negative) Urine RBC (0-5) /hpf Urine WBC (0-5) /hpf Ur Epithelial Cells (0-5) /hpf Urine Bacteria (FEW) /hpf Urine Mucus (FEW) /hpf Urine HCG, Qual (NEGATIVE) Meds: Medications Generic Name Dose Route Start Last Admin Trade Name Freq PRN Reason Stop Dose Admin Metronidazole 500 mg 05/26/17 23:49 Flagyl PO 05/26/17 23:50 ONETIME ONE Discontinued Medications Generic Name Dose Route Start Last Admin Trade Name Freq PRN Reason Stop Dose Admin Diatrizoate Meglum/Diatrizoate Sod 90 ml 05/26/17 22:15 05/26/17 22:33 Gastrografin 37% PO 05/26/17 22:16 90 ml ONETIME ONE Administration Lactated Ringer's 1,000 mls @ 999 mls/hr 05/26/17 21:26 05/26/17 21:44 Ringers, Lactated IV 05/26/17 22:26 999 mls/hr .BOLUS ONE Administration Iopamidol 125 ml 05/26/17 22:15 05/26/17 22:33 Isovue-300 (61%) IVPUSH 05/26/17 22:16 125 ml ONETIME ONE Administration Trimethoprim/Sulfamethoxazole 1 tab 05/26/17 23:48 Septra Ds PO 05/26/17 23:49 ONETIME ONE - Re-Assessments/Exams Free Text/Narrative Re-Assessment/Exam: 05/26/17 23:50 CT shows an uncomplicated diverticulitis in the area of the sigmoid colon. With the patient being allergic to Levaquin she'll be started on Bactrim DS and Flagyl Departure - Departure Time of Disposition: 23:51 Disposition: Home, Self-Care 01 Clinical Impression: Diverticulitis - Discharge Information Prescriptions: metroNIDAZOLE [Flagyl] 500 mg PO Q8H #30 tablet Sulfamethoxazole/Trimethoprim [Bactrim Ds Tablet] 1 each PO Q12H #20 tablet Referrals: Ivon Yancey, NEWSWRITER [Primary Care Provider] - Forms: ED Department Discharge Additional Instructions: Return to the emergency room with any questions problems worsening symptoms. Follow-up he regular provider at the end of this week for recheck. He been started on 2 antibiotics one of them is Bactrim take one twice daily until all gone second one is Flagyl, or metronidazole take one 3 times daily until all gone. - My Orders Last 24 Hours: My Active Orders 05/26/17 20:26 Abdomen 2V AP Flat Upright [CR] Stat 05/26/17 21:24 Abdomen Pelvis w Cont [CT] Stat 05/26/17 23:49 metroNIDAZOLE [Flagyl] 500 mg PO ONETIME ONE - Assessment/Plan Last 24 Hours: My Active Orders 05/26/17 20:26 Abdomen 2V AP Flat Upright [CR] Stat 05/26/17 21:24 Abdomen Pelvis w Cont [CT] Stat 05/26/17 23:49 metroNIDAZOLE [Flagyl] 500 mg PO ONETIME ONE
[2017-05-26] MEDS ORDERED: Lactated Ringers 1,000 ML IV ONE (21:26)
[2017-05-26] MEDS ORDERED: Iopamidol 612 MG/ML 150 ML Bottle IVPUSH ONE (22:15)
[2017-05-26] MEDS ORDERED: Diatrizoate Meglumine/Diatrizoate Sodium 37% 120 ML Bottle PO ONE (22:15)
[2017-05-26] MEDS ORDERED: Sulfamethoxazole/Trimethoprim 800-160 MG Tab PO ONE (23:48)
[2017-05-26] MEDS ORDERED: metroNIDAZOLE 500 MG Tab PO ONE (23:49)
--- NOTE | 2017-05-27 07:52 | CR ---
Abdomen: Supine and upright views of the abdomen were obtained. Comparison: No prior abdominal x-ray. Bowel gas pattern appears normal. IUD is present within the pelvis. No abnormal calcifications or soft tissue abnormality is seen. Bony structures are unremarkable. Impression: 1. Incidental finding. Diagnostic code #2
--- NOTE | 2017-05-27 08:00 | CT ---
CT abdomen and pelvis Technique: Multiple axial sections were obtained from above the dome of the diaphragm inferiorly to the pubic symphysis. Intravenous and oral contrast has been given. Delayed images were also obtained through the bladder. Comparison: Prior abdominal x-ray performed earlier on the same day (8:41 PM). Findings: Mild inflammatory change and adjacent bowel wall thickening is seen near the junction of the descending and sigmoid colon. Findings most likely represent diverticulitis. No free fluid within the pelvis is seen. No other inflammatory change is identified. Small portion of the visualized lung bases are clear. Liver shows no focal parenchymal abnormality. Spleen measures at the upper limits of normal at 13.2 cm which is likely incidental. Adrenal glands show no nodule. Kidneys show symmetric contrast enhancement without hydronephrosis or mass. Aorta shows no aneurysmal dilatation. Pancreas is within normal limits. Gallbladder is contracted. Aorta shows no aneurysmal dilatation. No retroperitoneal adenopathy is seen. Appendix is seen which appears normal. No pelvic mass or adenopathy is seen. Delayed images show contrast within the distal ureters and within the bladder. Bone window settings were reviewed which appear within normal limits for the patient's age. Impression: 1. Findings compatible with mild diverticulitis at the junction of the sigmoid and descending colon. 2. IUD is present. 3. No additional abnormality is felt to be present on CT study of the abdomen and pelvis. Diagnostic code #3 Agree with preliminary report issued by [facility] ([facility] preliminary report dictated on 05/26/17, 11:45 PM Central Time)
== END 2017-05-27 00:08 | disposition home or self-care (01) ==
LOC: JD.ED 19:44
DX: K57.32 Diverticulitis of large intestine without perforation or abscess without bleeding (principal); Z79.1 Long term (current) use of non-steroidal anti-inflammatories (NSAID); Z79.899 Other long term (current) drug therapy; Z88.1 Allergy status to other antibiotic agents
CPT/HCPCS: 36415; 74020; 74177; 80053; 81001; 81025; 85025; 96360; 99284; A9270; J7120; Q9963; Q9967

== ENCOUNTER 2017-08-23 01:52 | Emergency (ER) | payer MEDICAID ==
[2017-08-23 02:07] VITALS: BP 106/58
[2017-08-23] MEDS ORDERED: Sodium Chloride 0.9% 10 ML Syringe FLUSH PRN (02:12)
[2017-08-23] MEDS ORDERED: Sodium Chloride 0.9% 1,000 ML IV SCH (02:15)
--- NOTE | 2017-08-23 03:02 | EDM.PDOC ---
ED HPI GENERAL MEDICAL PROBLEM - General Chief Complaint: Syncope Stated Complaint: DX W/INFLU B & PASSED OUT THIS AM Time Seen by Provider: 08/23/17 02:08 Source of Information: Reports: Patient History Limitations: Reports: No Limitations - History of Present Illness INITIAL COMMENTS - FREE TEXT/NARRATIVE: The patient says she was diagnosed with influenza yesterday and she was started on tamiflu. Early this morning she got up to use the restroom and she was lightheaded. She went into the bathroom and went and on the way back she passed out. She did not wet herself and she did not bite her tongue. She has no chest pain or shortness of breath. She did not hit her head or hurt her neck. This has never happened before. She feels like she has been eating and drinking okay. She has fever, chills and body aches. She has no nausea, vomiting or abdominal pain. Onset: Sudden Duration: Minutes: Severity: Moderate Improves with: Reports: None Worsens with: Reports: None Associated Symptoms: Reports: Fever/Chills. Denies: Chest Pain, Cough, Headaches, Nausea/Vomiting, Shortness of Breath - Related Data Allergies Allergy/AdvReac Type Severity Reaction Status Date / Time levofloxacin [From Levaquin] Allergy Rash Verified 08/23/17 02:07 Home Meds: Home Meds Oseltamivir [Tamiflu] 75 mg PO BID 08/23/17 [History] guaiFENesin/Codeine Phosphate [Cheratussin AC Syrup] 5 ml PO Q4HR PRN 08/23/17 [ History] Past Medical History HEENT History: Reports: Other (See Below) Other HEENT History: episcleritis, glasses Cardiovascular History: Reports: Other (See Below) Other Cardiovascular History: varicose veins with phlebectomy to left lower leg Respiratory History: Reports: Sleep Apnea, Other (See Below) Gastrointestinal History: Reports: Gastritis, Hemorrhoids, Helicobacter Pylori, Other (See Below) Other Gastrointestinal History: intestinal metaplasia, esophagitis, diverticulosis Genitourinary History: Reports: None DELIVERY MAN History: Reports: Musculoskeletal History: Other Musculoskeletal History: plantar fasciitis Neurological History: Reports: None Psychiatric History: Reports: Depression Endocrine/Metabolic History: Reports: Obesity/BMI 30+ Hematologic History: Reports: None, Other (See Below) Other Hematologic History: stab phlebectomy Immunologic History: Reports: None Oncologic (Cancer) History: Reports: None Dermatologic History: Reports: None - Past Surgical History Head Surgeries/Procedures: Reports: None HEENT Surgical History: Reports: Adenoidectomy, Tonsillectomy GI Surgical History: Reports: Colonoscopy, EGD Social & Family History - Family History Family Medical History: Noncontributory - Tobacco Use Smoking Status *Q: Never Smoker Second Hand Smoke Exposure: No - Caffeine Use Caffeine Use: Reports: None - Alcohol Use Days Per Week of Alcohol Use: 0 Number of Drinks Per Day: 0 Total Drinks Per Week: 0 - Recreational Drug Use Recreational Drug Use: No Drug Use in Last 12 Months: No ED ROS GENERAL - Review of Systems Review Of Systems: See Below Constitutional: Reports: Fever, Chills HEENT: Reports: No Symptoms Respiratory: Reports: No Symptoms Cardiovascular: Reports: Syncope. Denies: Chest Pain Endocrine: Reports: No Symptoms GI/Abdominal: Reports: No Symptoms, Mucous in Stool Musculoskeletal: Reports: No Symptoms Neurological: Reports: No Symptoms ED EXAM, DIZZINESS - Physical Exam Exam: See Below Exam Limited By: No Limitations General Appearance: Alert, No Apparent Distress Ears: Normal External Exam Nose: Normal Inspection Head Exam: Atraumatic, Normocephalic Neck: Normal Inspection Respiratory/Chest: No Respiratory Distress, Lungs Clear, Normal Breath Sounds Cardiovascular: Regular Rate, Rhythm, No Edema, No Murmur GI/Abdominal: Soft, Non-Tender, No Organomegaly, No Mass Neurological: Alert, No Motor/Sensory Deficits, Oriented x 3 EKG INTERPRETATION EKG Date: 08/23/17 Time: : Rhythm: NSR Rate (Beats/Min): 88 Russell: Normal P-Wave: Present QRS: Normal ST-T: Normal QT: Normal Course - Vital Signs Last Recorded V/S: Last Vital Signs Temp 98.4 F 08/23/17 02:04 Pulse 97 08/23/17 02:04 Resp 18 08/23/17 02:04 BP 106/58 L 08/23/17 02:04 Pulse Ox 98 08/23/17 02:04 Orthostatic Blood Pressure [ 103/58 Standing] Orthostatic Blood Pressure [ 108/64 Sitting] Orthostatic Blood Pressure [ 104/59 Supine] - Orders/Labs/Meds Orders: Active Orders 24 hr Category Date Time Status Cardiac Monitoring [RC] . DIRECTED Care 08/23/17 02:12 Active EKG Documentation Completion [RC] ASDIRECTED Care 08/23/17 02:13 Active Orthostatic Vital Signs [RC] ASDIRECTED Care 08/23/17 02:11 Active Peripheral IV Care [RC] . DIRECTED Care 08/23/17 02:13 Active Sodium Chloride 0.9% [Normal Saline] 1,000 ml Med 08/23/17 02:15 Active IV .BOLUS Sodium Chloride 0.9% [Saline Flush] Med 08/23/17 02:12 Active 10 ml FLUSH ASDIRECTED PRN Peripheral IV Insertion Adult [OM.PC] Stat Oth 08/23/17 02:12 Ordered EKG 12 Lead [EK] Stat Ther 08/23/17 02:13 Ordered Medication Orders Sodium Chloride (Normal Saline) 1,000 mls @ 1,000 mls/hr IV .BOLUS YEIMY Last Admin: 08/23/17 02:22 Dose: 1,000 mls/hr Sodium Chloride (Saline Flush) 10 ml FLUSH ASDIRECTED PRN PRN Reason: Keep Vein Open Last Admin: 08/23/17 02:22 Dose: 10 ml Labs: Laboratory Tests 08/23/17 08/23/17 Range/Units 02:18 02:18 WBC 8.63 (3.98-10.04) K/mm3 RBC 4.35 (3.98-5.22) M/mm3 Hgb 13.7 (11.2-15.7) gm/L Hct 39.8 (34.1-44.9) % MCV 91.5 (79.4-94.8) fl MCH 31.5 (25.6-32.2) pg MCHC 34.4 (32.2-35.5) g/dl RDW Std Deviation 44.9 (36.4-46.3) fL Plt Count 196 (182-369) K/mm3 MPV 8.3 L (9.4-12.3) fl Neut % (Auto) 67.7 (34.0-71.1) % Lymph % (Auto) 19.8 (19.3-51.7) % Sevier % (Auto) 11.8 (4.7-12.5) % Eos % (Auto) 0.5 L (0.7-5.8) Baso % (Auto) 0.1 (0.1-1.2) % Neut # (Auto) 5.84 (1.56-6.13) K/mm3 Lymph # (Auto) 1.71 (1.18-3.74) K/mm3 Sevier # (Auto) 1.02 H (0.24-0.36) K/mm3 Eos # (Auto) 0.04 (0.04-0.36) K/mm3 Baso # (Auto) 0.01 (0.01-0.08) K/mm3 Sodium 136 (136-145) mEq/L Potassium 3.7 (3.5-5.1) mEq/L Chloride 101 (98-107) mEq/L Carbon Dioxide 23 (21-32) mEq/L Anion Gap 15.7 H (5-15) BUN 9 (7-18) mg/dL Creatinine 0.8 (0.55-1.02) mg/dL Est Cr Clr Drug Dosing 90.13 mL/min Estimated GFR (MDRD) > 60 (>60) mL/min BUN/Creatinine Ratio 11.3 L (14-18) Glucose 101 (74-106) mg/dL Calcium 8.9 (8.5-10.1) mg/dL Total Bilirubin 0.5 (0.2-1.0) mg/dL AST 21 (15-37) U/L ALT 28 (14-59) U/L Alkaline Phosphatase 84 (46-116) U/L Total Protein 7.7 (6.4-8.2) g/dl Albumin 3.7 (3.4-5.0) g/dl Globulin 4.0 gm/dL Albumin/Globulin Ratio 0.9 L (1-2) Meds: Medications Generic Name Dose Route Start Last Admin Trade Name Freq PRN Reason Stop Dose Admin Sodium Chloride 1,000 mls @ 1,000 mls/hr 08/23/17 02:15 08/23/17 02:22 Normal Saline IV 1,000 mls/hr .BOLUS YEIMY Administration Sodium Chloride 10 ml 08/23/17 02:12 08/23/17 02:22 Saline Flush FLUSH 10 ml ASDIRECTED PRN Administration Keep Vein Open Discontinued Medications Generic Name Dose Route Start Last Admin Trade Name Freq PRN Reason Stop Dose Admin Sodium Chloride 1,000 mls @ 1,000 mls/hr 08/23/17 03:29 08/23/17 03:30 Normal Saline IV 08/23/17 04:28 1,000 mls/hr ONETIME ONE Administration - Re-Assessments/Exams Free Text/Narrative Re-Assessment/Exam: 08/23/17 03:02 I ordered an IV NS 1L bolus, labs and an EKG. She was orthostatic with her blood pressures. Her EKG shows a NSR with no acute changes. 08/23/17 04:59 Her CBC and CMP look good. 08/23/17 04:59 Her blood pressure went down to 85 systolic once so I ordered another liter of fluid and she feels better after that. I will see if we can discharge her. Departure - Departure Time of Disposition: 05:00 Disposition: Home, Self-Care 01 Condition: Good Clinical Impression: Dehydration, Influenza Syncope Qualifiers: Syncope type: unspecified Qualified Code(s): R55 - Syncope and collapse - Discharge Information Referrals: Ivon Yancey INTERFACE CONTROL OFFICER [Primary Care Provider] - Forms: ED Department Discharge Additional Instructions: Continue to take the tamiflu. Drink plenty of fluids. For the next few days when you get up out of bed or the couch take a minute and sit before you get up. This will allow your body time to adjust your blood pressure. Take motrin or tylenol for any fever or pain. Please return if you are worse. - My Orders Last 24 Hours: My Active Orders 08/23/17 02:11 Orthostatic Vital Signs [RC] ASDIRECTED 08/23/17 02:12 Cardiac Monitoring [RC] . DIRECTED Sodium Chloride 0.9% [Saline Flush] 10 ml FLUSH ASDIRECTED PRN Peripheral IV Insertion Adult [OM.PC] Stat 08/23/17 02:13 EKG Documentation Completion [RC] ASDIRECTED Peripheral IV Care [RC] . DIRECTED EKG 12 Lead [EK] Stat 08/23/17 02:15 Sodium Chloride 0.9% [Normal Saline] 1,000 ml IV .BOLUS - Assessment/Plan Last 24 Hours: My Active Orders 08/23/17 02:11 Orthostatic Vital Signs [RC] ASDIRECTED 08/23/17 02:12 Cardiac Monitoring [RC] . DIRECTED Sodium Chloride 0.9% [Saline Flush] 10 ml FLUSH ASDIRECTED PRN Peripheral IV Insertion Adult [OM.PC] Stat 08/23/17 02:13 EKG Documentation Completion [RC] ASDIRECTED Peripheral IV Care [RC] . DIRECTED EKG 12 Lead [EK] Stat 08/23/17 02:15 Sodium Chloride 0.9% [Normal Saline] 1,000 ml IV .BOLUS
[2017-08-23] MEDS ORDERED: Sodium Chloride 0.9% 1,000 ML IV ONE (03:29)
== END 2017-08-23 05:20 | disposition home or self-care (01) ==
LOC: JD.ED 01:52
DX: E86.0 Dehydration (principal); R55 Syncope and collapse; J11.1 Influenza due to unidentified influenza virus with other respiratory manifestations; F32.9 Major depressive disorder, single episode, unspecified; Z88.1 Allergy status to other antibiotic agents
CPT/HCPCS: 36415; 80053; 85025; 93005; 96360; 96361; 99284; J7040; J7050; 99283

== ENCOUNTER 2019-12-12 17:32 | Emergency (ER) | payer MEDICAID ==
[2019-12-12 18:42] VITALS: BP 134/71; PULSE 93
--- NOTE | 2019-12-12 19:06 | EDM.PDOC ---
ED HPI GENERAL MEDICAL PROBLEM - General Chief Complaint: SNELLER HAND Problem Stated Complaint: 8 WKS PG AND IS BLEEDING Time Seen by Provider: 12/12/19 17:36 Source of Information: Reports: Patient History Limitations: Reports: No Limitations - History of Present Illness INITIAL COMMENTS - FREE TEXT/NARRATIVE: Patient is a 38-year-old female G5, P3, last menstrual period October 05 who presents to the emergency department with vaginal spotting. She states she first had some last evening. Described as light pink spotting on the toilet paper. It resolved, however this evening prior to coming to the ER she had another episode of blood which was present when she wiped. Bleeding is not significant to require a pad. She only notices upon wiping. She has not had any recent sexual intercourse or partake in any exertional activity. States she did have an ultrasound at 7 weeks which was found to be normal. Denies any pelvic cramping or back pain. She has no dysuria,, vomiting, or diarrhea. She has a history of miscarriage approximately 2 years ago. - Related Data Allergies Allergy/AdvReac Type Severity Reaction Status Date / Time levofloxacin [From Levaquin] Allergy Severe Rash Verified 12/12/19 18:38 Home Meds: Home Meds Multivitamin [Daily Multiple Vitamin] 1 tab DAILY 11/23/17 [History] miSOPROStoL [Cytotec] 400 mcg PO ONETIME #2 tablet 12/12/19 [Rx] Past Medical History HEENT History: Reports: Other (See Below) Other HEENT History: episcleritis, glasses Cardiovascular History: Reports: Other (See Below) Other Cardiovascular History: varicose veins with phlebectomy to left lower leg Respiratory History: Reports: Sleep Apnea, Other (See Below) Gastrointestinal History: Reports: Gastritis, Hemorrhoids, Helicobacter Pylori, Other (See Below) Other Gastrointestinal History: intestinal metaplasia, esophagitis, diverticulosis Genitourinary History: Reports: None SNELLER HAND History: Reports: Other SNELLER HAND History: Musculoskeletal History: Other Musculoskeletal History: plantar fasciitis Neurological History: Reports: None Psychiatric History: Reports: Depression Endocrine/Metabolic History: Reports: Obesity/BMI 30+ Hematologic History: Reports: None, Other (See Below) Other Hematologic History: stab phlebectomy Immunologic History: Reports: None Oncologic (Cancer) History: Reports: None Dermatologic History: Reports: None - Past Surgical History Head Surgeries/Procedures: Reports: None HEENT Surgical History: Reports: Adenoidectomy, Tonsillectomy GI Surgical History: Reports: Colonoscopy, EGD Social & Family History - Family History Family Medical History: Noncontributory - Caffeine Use Caffeine Use: Reports: None ED ROS GENERAL - Review of Systems Review Of Systems: Comprehensive ROS is negative, except as noted in HPI. ED EXAM - Physical Exam Exam: See Below Exam Limited By: No Limitations General Appearance: Alert, WD/WN, No Apparent Distress Respiratory/Chest: No Respiratory Distress, Lungs Clear, Normal Breath Sounds, No Accessory Muscle Use, Chest Non-Tender Cardiovascular: Normal Peripheral Pulses, Regular Rate, Rhythm, No Edema, No Gallop, No JVD, No Murmur, No Rub GI/Abdominal Exam: Normal Bowel Sounds, Soft, Non-Tender, No Organomegaly, No Distention, No Abnormal Bruit, No Mass, Pelvis Stable Neurological: Alert, Oriented, CN II-XII Intact, Normal Cognition, Normal Gait, Normal Reflexes, No Motor/Sensory Deficits Psychiatric: Normal Affect, Normal Mood Skin Exam: Warm, Dry, Intact, Normal Color, No Rash Course - Vital Signs Last Recorded V/S: Last Vital Signs Temp 98.8 F 12/12/19 18:39 Pulse 93 12/12/19 18:39 Resp 16 12/12/19 18:39 BP 134/71 12/12/19 18:39 Pulse Ox 100 12/12/19 18:39 - Orders/Labs/Meds Labs: Laboratory Tests 12/12/19 12/12/19 12/12/19 Range/Units 19:10 19:16 19:16 WBC 10.24 H (3.98-10.04) K/mm3 RBC 4.28 (3.98-5.22) M/mm3 Hgb 13.5 (11.2-15.7) gm/dl Hct 40.5 (34.1-44.9) % MCV 94.6 D (79.4-94.8) fl MCH 31.5 (25.6-32.2) pg MCHC 33.3 (32.2-35.5) g/dl RDW Std Deviation 44.6 (36.4-46.3) fL Plt Count 292 D (182-369) K/mm3 MPV 8.1 L (9.4-12.3) fl Neut % (Auto) 56.5 (34.0-71.1) % Lymph % (Auto) 32.8 (19.3-51.7) % [place] % (Auto) 8.9 (4.7-12.5) % Eos % (Auto) 1.2 (0.7-5.8) Baso % (Auto) 0.3 (0.1-1.2) % Neut # (Auto) 5.79 (1.56-6.13) K/mm3 Lymph # (Auto) 3.36 (1.18-3.74) K/mm3 [place] # (Auto) 0.91 H (0.24-0.36) K/mm3 Eos # (Auto) 0.12 (0.04-0.36) K/mm3 Baso # (Auto) 0.03 (0.01-0.08) K/mm3 Sodium 138 (136-145) mEq/L Potassium 3.6 (3.5-5.1) mEq/L Chloride 103 (98-107) mEq/L Carbon Dioxide 23 (21-32) mEq/L Anion Gap 15.6 H (5-15) BUN 14 (7-18) mg/dL Creatinine 0.9 (0.55-1.02) mg/dL Est Cr Clr Drug Dosing 78.56 mL/min Estimated GFR (MDRD) > 60 (>60) mL/min BUN/Creatinine Ratio 15.6 (14-18) Glucose 88 (74-106) mg/dL Calcium 9.2 (8.5-10.1) mg/dL Total Bilirubin 0.3 (0.2-1.0) mg/dL AST 20 (15-37) U/L ALT 31 (14-59) U/L Alkaline Phosphatase 85 (46-116) U/L Total Protein 8.0 (6.4-8.2) g/dl Albumin 3.7 (3.4-5.0) g/dl Globulin 4.3 gm/dL Albumin/Globulin Ratio 0.9 L (1-2) HCG, Quant 8850.0 mIU/mL Urine Color Yellow (Yellow) Urine Appearance Clear (Clear) Urine pH 6.5 (5.0-8.0) Ur Specific Allen 1.020 (1.005-1.030) Urine Protein Negative (Negative) Urine Glucose (UA) Negative (Negative) Urine Ketones Negative (Negative) Urine Occult Blood 3+ H (Negative) Urine Nitrite Negative (Negative) Urine Bilirubin Negative (Negative) Urine Urobilinogen 0.2 (0.2-1.0) Ur Leukocyte Esterase Negative (Negative) Urine RBC 10-20 H (0-5) /hpf Urine WBC 0-5 (0-5) /hpf Ur Squamous Epith Cells 0-5 (0-5) /hpf Urine Bacteria Few (FEW) /hpf Urine Mucus Few (FEW) /hpf Blood Type 12/12/19 Range/Units 19:16 WBC (3.98-10.04) K/mm3 RBC (3.98-5.22) M/mm3 Hgb (11.2-15.7) gm/dl Hct (34.1-44.9) % MCV (79.4-94.8) fl MCH (25.6-32.2) pg MCHC (32.2-35.5) g/dl RDW Std Deviation (36.4-46.3) fL Plt Count (182-369) K/mm3 MPV (9.4-12.3) fl Neut % (Auto) (34.0-71.1) % Lymph % (Auto) (19.3-51.7) % [place] % (Auto) (4.7-12.5) % Eos % (Auto) (0.7-5.8) Baso % (Auto) (0.1-1.2) % Neut # (Auto) (1.56-6.13) K/mm3 Lymph # (Auto) (1.18-3.74) K/mm3 [place] # (Auto) (0.24-0.36) K/mm3 Eos # (Auto) (0.04-0.36) K/mm3 Baso # (Auto) (0.01-0.08) K/mm3 Sodium (136-145) mEq/L Potassium (3.5-5.1) mEq/L Chloride (98-107) mEq/L Carbon Dioxide (21-32) mEq/L Anion Gap (5-15) BUN (7-18) mg/dL Creatinine (0.55-1.02) mg/dL Est Cr Clr Drug Dosing mL/min Estimated GFR (MDRD) (>60) mL/min BUN/Creatinine Ratio (14-18) Glucose (74-106) mg/dL Calcium (8.5-10.1) mg/dL Total Bilirubin (0.2-1.0) mg/dL AST (15-37) U/L ALT (14-59) U/L Alkaline Phosphatase (46-116) U/L Total Protein (6.4-8.2) g/dl Albumin (3.4-5.0) g/dl Globulin gm/dL Albumin/Globulin Ratio (1-2) HCG, Quant mIU/mL Urine Color (Yellow) Urine Appearance (Clear) Urine pH (5.0-8.0) Ur Specific Allen (1.005-1.030) Urine Protein (Negative) Urine Glucose (UA) (Negative) Urine Ketones (Negative) Urine Occult Blood (Negative) Urine Nitrite (Negative) Urine Bilirubin (Negative) Urine Urobilinogen (0.2-1.0) Ur Leukocyte Esterase (Negative) Urine RBC (0-5) /hpf Urine WBC (0-5) /hpf Ur Squamous Epith Cells (0-5) /hpf Urine Bacteria (FEW) /hpf Urine Mucus (FEW) /hpf Blood Type B POSITIVE Meds: Medications Discontinued Medications Generic Name Dose Route Start Last Admin Trade Name Cade PRN Reason Stop Dose Admin Ibuprofen 600 mg 12/12/19 21:47 12/12/19 21:59 Motrin PO 12/12/19 21:48 600 mg ONETIME ONE Administration Misoprostol 800 mcg 12/12/19 22:00 Cytotec PO BID YEIMY Misoprostol 800 mcg 12/12/19 21:49 12/12/19 21:59 Cytotec PO 12/12/19 21:50 800 mcg ONETIME ONE Administration - Re-Assessments/Exams Free Text/Narrative Re-Assessment/Exam: 12/12/19 21:03 Transvaginal ultrasound unfortunately was absent for cardiac activity compatible with nonviable . hCG level was low at 8850 which is just over half of what it should be for her gestational age. We are still waiting for the results of her Rh/ABO. Results were discussed with the patient. She is inquiring if there is any way to expedite the process of miscarriage instead of waiting to see her SNELLER HAND on . Called and spoke with the on-call SNELLER HAND, Dr. Valencia. He stated that we can give her 800 mcg of Cytotec now and then send a prescription for 400 mcg of Cytotec to be taken tomorrow evening. He discussed that she will have severe cramping and bleeding associated with this. He recommended that we prescribe her Percocet to be taken every 6 hours and that she alternate that with Motrin every 6 hours as well. Recommended that we give RhoGam as indicated by her Rh factor. Patient should not be home alone in case she needs to return to the ER. Discussed this option with the patient and she would like to proceed with this. We will wait for the results of her Rh/ABO. 12/12/19 21:49 Patient's blood type is B+ so there is no indication for RhoGam. I will give her 800 mcg of Cytotec orally now in addition to a dose of Motrin. She will be given an [facility] prescription for Percocet and I sent a prescription for the remaining 400 mcg of Cytotec to [facility] as they are the only pharmacy open tomorrow. I emphasized to her that if she is saturating a pad an hour for 2 or more hours or if the pain becomes too severe, she should return to the emergency department. Also emphasized that she should not be home alone until the cramping and bleeding subsides. She states that she does not live alone and is in agreement with this plan. Recommend that she follow-up with Dr. Bright on Saturday. Discharge instructions as documented. Departure - Departure Time of Disposition: 21:52 Disposition: Home, Self-Care 01 Condition: Good Clinical Impression: Non-viable - Discharge Information *PRESCRIPTION DRUG MONITORING PROGRAM REVIEWED*: Yes *COPY OF PRESCRIPTION DRUG MONITORING REPORT IN PATIENT SILVANO: No Prescriptions: miSOPROStoL [Cytotec] 400 mcg PO ONETIME #2 tablet Referrals: Lluvia Bright MD [Primary Care Provider] - Forms: ED Department Discharge Additional Instructions: You were seen in the emergency department for vaginal bleeding yesterday and today. Blood work, urinalysis, and a ultrasound was completed. Unfortunately, there was no cardiac activity found on ultrasound and your hCG levels are at approximately half of what they should be for the gestation age. These findings are compatible with a nonviable . You requested to see receive medications to facilitate the passage of the products of conception, as opposed to waiting for your appointment with Dr. Bright next week. You received a dose of Cytotec and Motrin in the emergency department. You have been provided with an [email or web address] prescription for Percocet. A prescription for the second dose of Cytotec which should be taken tomorrow evening has been sent to [facility]. You may pick this prescription up tomorrow. As we discussed, you are likely going to have severe cramping and pain induced by the Cytotec. Recommend that you take Motrin every 6 hours alternating with a Percocet every 6 hours to control the pain. You will also have increased bleeding. You should not stay home alone until the cramping and bleeding has essentially resolved. If you are bleeding to the point where you are saturating a pad an hour for 2 or more hours or the pain becomes too severe for you to tolerate, you should return to the emergency department for reevaluation. Recommend that you call Dr. Bright's office first thing Saturday to schedule a follow-up with her as soon as possible. If you have any concerning symptoms or questions, please not hesitate to call or return to the emergency de partment. Sepsis Event Note (ED) - Evaluation Sepsis Screening Result: No Definite Risk
[2019-12-12] MEDS ORDERED: Ibuprofen 600 MG Tab PO ONE (21:47)
[2019-12-12] MEDS ORDERED: Misoprostol 200 MCG Tab PO ONE (21:49)
[2019-12-12] MEDS ORDERED: Misoprostol 200 MCG Tab PO SCH (22:00)
--- NOTE | 2019-12-14 09:52 | US ---
1st trimester obstetrical ultrasound: Multiple real-time images were obtained transvaginally. Comparison: No previous study for current is available. Dates: LMP: LMP given as 10/06/19, HARSHAD 07/12/20, gestational age 9 weeks 4 days Current ultrasound: HARSHAD 07/22/20, gestational 8 weeks 1 day Single intrauterine gestation is seen. Amniotic fluid volume is normal. Small embryo is noted. No subchorionic hemorrhage is noted. Maternal ovaries not well seen. No adnexal abnormalities are appreciated. Measurements: Ketchum-rump length: 1.73 cm - 8 weeks 1 day Heart rate: No heart activity seen at this time. Impression: 1. Single intrauterine gestation. Dates as noted above. 2. No heart activity is seen which should be visible at this time. Findings are felt compatible with nonviable . Diagnostic code #5 This report was dictated in MDT I agree with preliminary report from [facility], finalized on 12/12/19, 9:39 PM Central Daylight Time
== END 2019-12-12 22:06 | disposition home or self-care (01) ==
LOC: JD.ED 17:32
DX: O36.4XX0 Maternal care for intrauterine death, not applicable or unspecified (principal); Z88.1 Allergy status to other antibiotic agents; E66.9 Obesity, unspecified; Z68.43 Body mass index [BMI] 50.0-59.9, adult
CPT/HCPCS: 36415; 76817; 80053; 81001; 84702; 85025; 86900; 86901; 99284; A9270; 99283

== ENCOUNTER 2020-05-10 17:19 | Emergency (ER) | payer MEDICAID ==
[2020-05-10 17:33] VITALS: BP 132/83; PULSE 112
--- NOTE | 2020-05-10 17:45 | EDM.PDOC ---
ED HPI GENERAL MEDICAL PROBLEM - General Chief Complaint: Lower Extremity Injury/Pain Stated Complaint: LT ANKLE PAIN Time Seen by Provider: 05/10/20 17:35 Source of Information: Reports: Patient History Limitations: Reports: No Limitations - History of Present Illness INITIAL COMMENTS - FREE TEXT/NARRATIVE: 39-year-old female presents to the ED with persistent pain in the lateral aspect of her left ankle. Patient has had problems with left ankle pain for greater than 1 year. It was identified that she had torn to ligaments on the lateral aspect of the ankle that were treated initially conservatively with nonweightbearing crutch walking ,and then stabilization with boot brace etc. Currently she has had surgery performed on the tendons with tendon grafts and repairs done by Dr. Issa a vmware systems administrator at [facility] in [place] in mid December of this year. She is still in physiotherapy program but feels that she is just not improving. Increased pain in the left ankle recently. She still cannot tolerate going up and down stairs. Pain is worse with dorsiflexion of the ankle. Is unclear if there is pins or leroy in the lateral aspect of the ankle. She is appreciated that left ankle has become more warm to touch the last several days. She has no systemic signs of illness such as fever chills nausea vomiting. Onset: Other (Chronic problems with left ankle for the last year. Worse the last 4 to 5 days. No recent recurrent injuries.) Duration: Chronic, Getting Worse Location: Reports: Lower Extremity, Left (For lateral ankle pain) Quality: Reports: Ache, Stabbing, Throbbing Severity: Moderate (70 8 out of 10 with walking or weightbearing) Improves with: Reports: Rest Worsens with: Reports: Movement (Elevation of the leg) Context: Reports: Other (Initial cause of ligamentous tears unclear.). Denies: Activity ( worse with movement and weightbearing), Exercise, Lifting, Sick Contact, Trauma Associated Symptoms: Denies: Confusion, Chest Pain, Cough, cough w sputum, Diaphoresis, Fever/Chills, Headaches, Loss of Appetite, Malaise, Nausea/Vomiting, Seizure, Shortness of Breath, Syncope, Weakness Treatments COSMETIC SALES: Reports: NSAIDS (Motrin) Left Ankle Pain Score (Numeric/FACES): 9 - Related Data Allergies Allergy/AdvReac Type Severity Reaction Status Date / Time levofloxacin [From Levaquin] Allergy Severe Rash Verified 05/10/20 17:35 Home Meds: Home Meds Multivitamin [Daily Multiple Vitamin] 1 tab PO DAILY 11/23/17 [History] Diclofenac Sodium [Voltaren] 75 mg PO BIDMEALS #24 tab.cr 05/10/20 [Rx] levonorgestreL [Mirena] 1 each VAG ASDIRECTED 05/10/20 [History] oxyCODONE HCl/Acetaminophen [Percocet 5-325 mg Tablet] 1 - 2 each PO Q4H PRN #20 tablet 05/10/20 [Rx] Past Medical History HEENT History: Reports: Other (See Below) Other HEENT History: episcleritis, glasses Cardiovascular History: Reports: Other (See Below) Other Cardiovascular History: varicose veins with phlebectomy to left lower leg Respiratory History: Reports: Sleep Apnea, Other (See Below) Gastrointestinal History: Reports: Gastritis, Hemorrhoids, Helicobacter Pylori, Other (See Below) Other Gastrointestinal History: intestinal metaplasia, esophagitis, diverticulosis Genitourinary History: Reports: None COUNSELOR AIDE History: Reports: Other COUNSELOR AIDE History: Musculoskeletal History: Other Musculoskeletal History: plantar fasciitis Neurological History: Reports: None Psychiatric History: Reports: Depression Endocrine/Metabolic History: Reports: Obesity/BMI 30+ Hematologic History: Reports: None, Other (See Below) Other Hematologic History: stab phlebectomy Immunologic History: Reports: None Oncologic (Cancer) History: Reports: None Dermatologic History: Reports: None - Past Surgical History Head Surgeries/Procedures: Reports: None HEENT Surgical History: Reports: Adenoidectomy, Tonsillectomy GI Surgical History: Reports: Colonoscopy, EGD Social & Family History - Family History Family Medical History: No Pertinent Family History - Caffeine Use Caffeine Use: Reports: None - Living Situation & Occupation Living situation: Reports: Single Occupation: Employed Review of Systems - Review of Systems Review Of Systems: See Below Constitutional: Denies: Chills, Diaphoresis, Fever, Weakness, Other Eyes: Reports: No Symptoms Ears: Reports: No Symptoms Nose: Reports: No Symptoms Mouth/Throat: Reports: No Symptoms Respiratory: Reports: No Symptoms Cardiovascular: Reports: No Symptoms GI/Abdominal: Reports: No Symptoms Genitourinary: Reports: No Symptoms Musculoskeletal: Reports: Other (Rama left lateral ankle pain.) Skin: Reports: No Symptoms Neurological: Reports: No Symptoms Psychiatric: Reports: No Symptoms ED EXAM, GENERAL - Physical Exam Exam: See Below Exam Limited By: No Limitations General Appearance: Alert, WD/WN, Other (Temperature is 36.6. Heart rate 112 and sinus. Respiratory is 19 O2 sats 98% room air BP 1 30-83) Eye Exam: Bilateral Eye: Normal Inspection, PERRL Peripheral Pulses: 2+: Posterior Tibial (L), Posterior Tibial (R), Dorsalis Pedis (L), Dorsalis Pedis (R) Extremities: Other (Emanation was limited primarily to the left lower extremity. There is no increased edema and calf muscles are easily malleable. She does have increased swelling lateral aspect of the ankle with increased warmth without erythema. There are 2 areas of erythema over the dorsal aspect of the mid ankle anteriorly which is from her pressure stocking. She has very limited mobility I know ability to internally rotate the ankle or to externally rotate the ankle and very limited ability to dorsiflex.) Psychiatric: Normal Affect, Normal Mood Skin Exam: Warm, Dry, Intact, Normal Color, No Rash Course - Vital Signs Last Recorded V/S: Last Vital Signs Temp 36.6 C 05/10/20 17:31 Pulse 112 H 05/10/20 17:31 Resp 19 05/10/20 17:31 BP 132/83 05/10/20 17:31 Pulse Ox 98 05/10/20 17:31 - Orders/Labs/Meds Orders: Active Orders 24 hr Category Date Time Status Ankle Min 3V Lt [CR] Stat Exams 05/10/20 17:45 Taken - Radiology Interpretation Free Text/Narrative:: 39-year-old female presents to the ED for evaluation of left lateral ankle pain which is a chronic problem for her. She has had chronic problem with the left ankle for over a year. Identified by MRI to have torn lateral ligaments with conservative management initially with Former vmware systems administrator here in [place]. Subsequently went on to tendon repair surgically mid December by Dr. Issa at [facility] in [place]. Having increased pain and swelling the last 3 to 4 days in the ankle with very limited mobility. Concerned there may be a problem with the hardware placed at the time of surgery. There is increased swelling lateral ankle and increased warmth to palpation. Plan 3 views of the ankle to be done - Re-Assessments/Exams Free Text/Narrative Re-Assessment/Exam: 05/10/20 18:07 Three views of the ankle have been completed. They reveal some degree of osteopenia of the distal fibula .There is no fixation hardware with leroy from tendon repair. Therefore grafting must of been carried out with primary suturing. She has a large calcaneal spur. There is no evidence of acute fracture. There is no evidence of joint malalignment or dislocation. There is a fairly large joint effusion present. Moderate soft tissue swelling evident. I am going to place her on Voltaren 75 mg twice daily for the next 12 days to try and reduce inflammation in this area since it is hot and inflamed Percocet tabs 5/325 mg 1 or 2 every 4-6 hours necessary for pain relief until she can follow-up with Dr. Issa in [place]. Departure - Departure Time of Disposition: 18:08 Disposition: Home, Self-Care 01 Condition: Fair Clinical Impression: Left lateral ankle pain, Status post tendon repair - Discharge Information *PRESCRIPTION DRUG MONITORING PROGRAM REVIEWED*: Not Applicable *COPY OF PRESCRIPTION DRUG MONITORING REPORT IN PATIENT SILVANO: Not Applicable Prescriptions: oxyCODONE HCl/Acetaminophen [Percocet 5-325 mg Tablet] 1 - 2 each PO Q4H PRN #20 tablet PRN Reason: pain relief. Diclofenac Sodium [Voltaren] 75 mg PO BIDMEALS #24 tab.cr Instructions: Joint Pain Referrals: Tanika Cervantes PA-C [Primary Care Provider] - Forms: ED Department Discharge Additional Instructions: Evaluation in the emergency room today in regards to increased pain and swelling left lateral ankle at previous site of tendon repair done in mid December of this year. Not reveal any abnormalities of the underlying bone such as an infection and there is no hardware within the ankle itself. Therefore tendon repair was done by primary suturing tendons back together. Continue physical therapy as tolerated. Suggest a trial of Voltaren 75 mg twice daily usually with breakfast and after supper for the next 12 days to reduce pain and inflammation. Percocet tabs 5/325 mg 1 or 2 every 6 hours as needed for pain relief ideally at bedtime so that you can get appropriate sleep and reduction of pain after being on it all day. Suggest follow-up with Dr. Issa --vmware systems administrator to perform the surgery to see if there are any other alternative measures to bring inflammation under control. Sepsis Event Note (ED) - Evaluation Sepsis Screening Result: No Definite Risk - Focused Exam Vital Signs: Vital Signs Temp Pulse Resp BP Pulse Ox 05/10/20 17:31 36.6 C 112 H 19 132/83 98 - My Orders Last 24 Hours: My Active Orders 05/10/20 17:45 Ankle Min 3V Lt [CR] Stat - Assessment/Plan Last 24 Hours: My Active Orders 05/10/20 17:45 Ankle Min 3V Lt [CR] Stat
--- NOTE | 2020-05-11 08:37 | CR ---
PROCEDURE INFORMATION: Exam: XR Left Ankle Exam date and time: 05/10/2020 5:32 PM Age: 39 years old Clinical indication: Prior surgery; Surgery date: 1-6 months; Patient HX: Lt lateral ankle pain. Tendon surgery done mid December of this year. Recent warmth and swelling to left lateral ankle. TECHNIQUE: Imaging protocol: XR Left ankle. Views: 3 or more views. COMPARISON: No relevant prior studies available. FINDINGS: Bones/joints: There is no evidence of acute fracture. There is no evidence of joint malalignment or dislocation. Joint effusion is present. Soft tissues: Moderate soft tissue swelling. IMPRESSION: 1. Moderate soft tissue swelling. 2. No evidence of acute fracture. 3. No evidence of acute dislocation. 4. Joint effusion is present. Thank you for allowing us to participate in the care of your patient. Dictated and Authenticated by: Richie Yancey DO 05/10/2020 7:07 PM Central Time ([place] & [place]) [email or web address]
== END 2020-05-10 18:31 | disposition home or self-care (01) ==
LOC: JD.ED 17:19
DX: M25.572 Pain in left ankle and joints of left foot (principal); E66.9 Obesity, unspecified; Z68.43 Body mass index [BMI] 50.0-59.9, adult; Z98.890 Other specified postprocedural states; Z88.1 Allergy status to other antibiotic agents
CPT/HCPCS: 73610-26-LT; 73610-LT; 99283

== ENCOUNTER 2020-10-28 10:36 | Emergency (ER) | payer MEDICAID ==
[2020-10-28 11:03] VITALS: BP 116/77; PULSE 98
[2020-10-28] MEDS ORDERED: Sodium Chloride 0.9% 10 ML Syringe FLUSH PRN (11:39)
[2020-10-28] MEDS ORDERED: Sodium Chloride 0.9% 1,000 ML IV STA (11:39)
--- NOTE | 2020-10-28 12:14 | EDM.PDOC ---
ED HPI GENERAL MEDICAL PROBLEM - General Chief Complaint: Gastrointestinal Problem Stated Complaint: BARIATRIC SURGERY NOW DEHYDRATED Time Seen by Provider: 10/28/20 11:13 Source of Information: Reports: Patient, RN Notes Reviewed History Limitations: Reports: No Limitations - History of Present Illness INITIAL COMMENTS - FREE TEXT/NARRATIVE: Patient is a 39-year-old female presenting to the emergency department with complaints of dizziness with standing and increased heart rate with activities. She had gastric bypass surgery on September 26 and states since that time she has been experiencing nausea and decreased appetite. She states that whenever she eats or drinks anything she has worsening of nausea as well as some abdominal cramping. She spoke with her bariatric surgeon, Dr. Bahena, who scheduled her an appointment for Saturday. She has an appointment with her on Saturday, however, she recommended that she come to the ER for treatment of dehydration. She denies any abdominal pain or nausea at this time. She is prescribed bariatric vitamins, however states she has been unable to take them recently due to the nausea. She is not currently on any medications for nausea. - Related Data Allergies Allergy/AdvReac Type Severity Reaction Status Date / Time levofloxacin [From Levaquin] Allergy Severe Rash Verified 10/28/20 10:57 Home Meds: Home Meds Calcium Carbonate [Calcium] 1,500 mg PO DAILY 10/28/20 [History] Multivit-Min/Iron/Folic Acid/K [Bariatric Mv-Iron 45 mg Cap] 1 each PO DAILY 10/28/20 [History] Past Medical History HEENT History: Reports: Other (See Below) Other HEENT History: episcleritis, glasses Cardiovascular History: Reports: Other (See Below) Other Cardiovascular History: varicose veins with phlebectomy to left lower leg Respiratory History: Reports: Sleep Apnea, Other (See Below) Gastrointestinal History: Reports: Gastritis, Hemorrhoids, Helicobacter Pylori, Other (See Below) Other Gastrointestinal History: intestinal metaplasia, esophagitis, diverticulosis Genitourinary History: Reports: None [employer] History: Reports: Other [employer]ENT History: Musculoskeletal History: Other Musculoskeletal History: plantar fasciitis Neurological History: Reports: None Psychiatric History: Reports: Depression Endocrine/Metabolic History: Reports: Obesity/BMI 30+ Hematologic History: Reports: Other (See Below) Other Hematologic History: stab phlebectomy Immunologic History: Reports: None Oncologic (Cancer) History: Reports: None Dermatologic History: Reports: None - Past Surgical History Head Surgeries/Procedures: Reports: None HEENT Surgical History: Reports: Adenoidectomy, Tonsillectomy GI Surgical History: Reports: Colonoscopy, EGD Other GI Surgeries/Procedures: hemorrhoidectomy Musculoskeletal Surgical History: Reports: Other (See Below) Other Musculoskeletal Surgeries/Procedures:: ligament sx to L ankle Social & Family History - Family History Family Medical History: No Pertinent Family History - Tobacco Use Tobacco Use Status *Q: Never Tobacco User - Caffeine Use Caffeine Use: Reports: Soda - Recreational Drug Use Recreational Drug Use: No - Living Situation & Occupation Living situation: Reports: Single Occupation: Employed ED ROS GENERAL - Review of Systems Review Of Systems: See Below Constitutional: Reports: No Symptoms. Denies: Fever HEENT: Reports: No Symptoms Respiratory: Reports: No Symptoms. Denies: Shortness of Breath, Cough Cardiovascular: Reports: Lightheadedness. Denies: Chest Pain, Dyspnea on Exertion, Palpitations, Syncope Endocrine: Reports: No Symptoms GI/Abdominal: Reports: Abdominal Pain (Intermittent cramping with oral intake), Decreased Appetite, Nausea. Denies: Black Stool, Bloody Stool, Constipation, Diarrhea, Vomiting : Reports: No Symptoms Musculoskeletal: Reports: No Symptoms Skin: Reports: No Symptoms Neurological: Reports: No Symptoms Psychiatric: Reports: No Symptoms Hematologic/Lymphatic: Reports: No Symptoms Immunologic: Reports: No Symptoms ED EXAM, GI/ABD - Physical Exam Exam: See Below General Appearance: Alert, WD/WN, No Apparent Distress Respiratory/Chest: No Respiratory Distress, Lungs Clear, Normal Breath Sounds, No Accessory Muscle Use, Chest Non-Tender Cardiovascular: Normal Peripheral Pulses, Regular Rate, Rhythm, No Edema, No Gallop, No JVD, No Murmur, No Rub GI/Abdominal Exam: Normal Bowel Sounds, Soft, Non-Tender, No Organomegaly, No Distention, No Abnormal Bruit, No Mass, Pelvis Stable Neurological: Alert, Oriented, CN II-XII Intact, Normal Cognition, Normal Gait, Normal Reflexes, No Motor/Sensory Deficits Psychiatric: Normal Affect, Normal Mood Skin Exam: Warm, Dry, Intact, Normal Color, No Rash Course - Vital Signs Last Recorded V/S: Last Vital Signs Temp 98.8 F 10/28/20 10:58 Pulse 98 10/28/20 10:58 Resp 16 10/28/20 10:58 BP 116/77 10/28/20 10:58 Pulse Ox 99 10/28/20 10:58 Orthostatic Blood Pressure [ 101/83 Standing] Orthostatic Blood Pressure [ 106/80 Sitting] Orthostatic Blood Pressure [ 107/66 Supine] - Orders/Labs/Meds Orders: Active Orders 24 hr Category Date Time Status Peripheral IV Care [RC] . DIRECTED Care 10/28/20 11:39 Active Sodium Chloride 0.9% [Normal Saline] 1,000 ml Med 10/28/20 13:00 Active IV ASDIRECTED Sodium Chloride 0.9% [Saline Flush] Med 10/28/20 11:39 Active 10 ml FLUSH ASDIRECTED PRN Peripheral IV Insertion Adult [OM.PC] Stat Oth 10/28/20 11:38 Ordered Medication Orders Sodium Chloride (Normal Saline) 1,000 mls @ 999 mls/hr IV ASDIRECTED YEIMY Last Admin: 10/28/20 13:00 Dose: 999 mls/hr Documented by: ISRA Sodium Chloride (Sodium Chloride 0.9% 10 Ml Syringe) 10 ml FLUSH ASDIRECTED PRN PRN Reason: Keep Vein Open Last Admin: 10/28/20 11:49 Dose: 10 ml Documented by: ISRA Labs: Laboratory Tests 10/28/20 10/28/20 Range/Units 11:15 11:15 WBC 5.57 (3.98-10.04) K/mm3 RBC 4.87 (3.98-5.22) M/mm3 Hgb 15.0 D (11.2-15.7) gm/dl Hct 43.9 (34.1-44.9) % MCV 90.1 D (79.4-94.8) fl MCH 30.8 (25.6-32.2) pg MCHC 34.2 (32.2-35.5) g/dl RDW Std Deviation 46.1 (36.4-46.3) fL Plt Count 245 (182-369) K/mm3 MPV 9.1 L (9.4-12.3) fl Neut % (Auto) 38.8 (34.0-71.1) % Lymph % (Auto) 47.4 (19.3-51.7) % [place] % (Auto) 10.8 (4.7-12.5) % Eos % (Auto) 2.2 (0.7-5.8) Baso % (Auto) 0.4 (0.1-1.2) % Neut # (Auto) 2.17 (1.56-6.13) K/mm3 Lymph # (Auto) 2.64 (1.18-3.74) K/mm3 [place] # (Auto) 0.60 H (0.24-0.36) K/mm3 Eos # (Auto) 0.12 (0.04-0.36) K/mm3 Baso # (Auto) 0.02 (0.01-0.08) K/mm3 Sodium 138 (136-145) mEq/L Potassium 3.8 (3.5-5.1) mEq/L Chloride 103 (98-107) mEq/L Carbon Dioxide 20 L (21-32) mEq/L Anion Gap 18.8 H (5-15) BUN 7 (7-18) mg/dL Creatinine 0.8 (0.55-1.02) mg/dL Est Cr Clr Drug Dosing TNP Estimated GFR (MDRD) > 60 (>60) mL/min BUN/Creatinine Ratio 8.8 L (14-18) Glucose 74 (70-99) mg/dL Calcium 9.1 (8.5-10.1) mg/dL Magnesium 1.9 (1.8-2.4) mg/dL Total Bilirubin 1.1 H (0.2-1.0) mg/dL AST 109 H (15-37) U/L ALT 121 H (14-59) U/L Alkaline Phosphatase 129 H (46-116) U/L C-Reactive Protein 1.1 H* (<1.0) mg/dL Total Protein 7.8 (6.4-8.2) g/dl Albumin 3.7 (3.4-5.0) g/dl Globulin 4.1 gm/dL Albumin/Globulin Ratio 0.9 L (1-2) Meds: Medications Generic Name Dose Route Start Last Admin Trade Name Freq PRN Reason Stop Dose Admin Sodium Chloride 1,000 mls @ 999 mls/hr 10/28/20 13:00 10/28/20 13:00 Normal Saline IV 999 mls/hr ASDIRECTED YEIMY Administration Sodium Chloride 10 ml 10/28/20 11:39 10/28/20 11:49 Sodium Chloride 0.9% 10 Ml Syringe FLUSH 10 ml ASDIRECTED PRN Administration Keep Vein Open Discontinued Medications Generic Name Dose Route Start Last Admin Trade Name Cade PRN Reason Stop Dose Admin Sodium Chloride 1,000 mls @ 999 mls/hr 10/28/20 11:39 10/28/20 11:49 Normal Saline IV 10/28/20 12:39 999 mls/hr NOW STA Administration - Re-Assessments/Exams Free Text/Narrative Re-Assessment/Exam: Patient is a 39-year-old female presenting to the emergency department for evaluation for likely dehydration. She had gastric bypass surgery in September and has been having problems with nausea and decreased appetite since that time. S he recently has been getting lightheaded upon standing and tachycardic with activity. She contacted her bariatric surgeon who has her scheduled for follow- up on Saturday, however she recommended she come to the ER for treatment of dehydration. Orthostatic vital signs obtained on triage show that she is orthostatic based on pulse rate going from 88 lying to 133 standing. Blood pressure did remain stable. I have ordered blood work and a 1 L bolus of normal saline. 10/28/20 1310 Hematology was significant for a CO2 low at 20, anion gap elevated 18.8, total bili 1.1, AST 109, ALT 121, alkaline phosphatase 139, CRP 1.1. Magnesium and potassium are normal. Orthostatic vital signs were obtained after the first liter of IV fluids. This did show improvement, however her heart rate did still go from 77 lying to 109 standing. I ordered a second liter of IV fluids. 10/28/20 13:56 Patient is feeling much better after the second liter of IV fluids. She was able to eat a small amount of food. She is comfortable going home at this time. Offered medication for nausea, however she declined this. I did discuss that her liver enzymes were slightly elevated and recommend that [facility] so that she may monitor this. Discussed that her lab values are in her discharge packet so she may take it with her to her appointment on Saturday. Discussed return precautions. Discharge instructions as documented. Departure - Departure Time of Disposition: 13:56 Disposition: Home, Self-Care 01 Condition: Good Clinical Impression: Dehydration, Nausea, Decreased appetite - Discharge Information Instructions: Dehydration, Adult, [id number], Nausea, Adult Referrals: Tanika Cervantes PA-C [Primary Care Provider] - Kiya Bahena MD [Ordering Only Provider] - Forms: ED Department Discharge Additional Instructions: You were seen in the emergency department today for evaluation with regards to lightheadedness upon standing as well as rapid heart rate with activity. Blood work did show that you were dehydrated. While in the ER, you received 2 L of IV fluids which did improve your symptoms. Blood work did show that your liver enzymes are slightly elevated as well. Recommend follow-up with your bariatric surgeon as scheduled on Saturday. The results of your lab work is included in this packet. If you should experience any new or worsening symptoms over the weekend, please not hesitate to return to the emergency department for reevaluation. Sepsis Event Note (ED) - Evaluation Sepsis Screening Result: No Definite Risk - Focused Exam Vital Signs: Vital Signs Temp Pulse Resp BP Pulse Ox 10/28/20 10:58 98.8 F 98 16 116/77 99 - My Orders Last 24 Hours: My Active Orders 10/28/20 11:38 Peripheral IV Insertion Adult [OM.PC] Stat 10/28/20 11:39 Peripheral IV Care [RC] . DIRECTED Sodium Chloride 0.9% [Saline Flush] 10 ml FLUSH ASDIRECTED PRN 10/28/20 13:00 Sodium Chloride 0.9% [Normal Saline] 1,000 ml IV ASDIRECTED - Assessment/Plan Last 24 Hours: My Active Orders 10/28/20 11:38 Peripheral IV Insertion Adult [OM.PC] Stat 10/28/20 11:39 Peripheral IV Care [RC] . DIRECTED Sodium Chloride 0.9% [Saline Flush] 10 ml FLUSH ASDIRECTED PRN 10/28/20 13:00 Sodium Chloride 0.9% [Normal Saline] 1,000 ml IV ASDIRECTED
[2020-10-28] MEDS ORDERED: Sodium Chloride 0.9% 1,000 ML IV SCH (13:00)
== END 2020-10-28 14:09 | disposition home or self-care (01) ==
LOC: JD.ED 10:36
DX: E86.0 Dehydration (principal); R63.0 Anorexia; E66.9 Obesity, unspecified; R11.0 Nausea; Z88.1 Allergy status to other antibiotic agents; Z68.30 Body mass index [BMI] 30.0-30.9, adult
CPT/HCPCS: 36415; 80053; 83735; 85025; 86140; 99284; J7030

== ENCOUNTER 2022-10-12 18:08 | Emergency (ER) | payer MEDICAID ==
[2022-10-12 20:11] VITALS: BP 128/68; PULSE 71
== END 2022-10-12 20:05 | disposition home or self-care (01) ==
LOC: JD.ED 18:08
DX: M77.11 Lateral epicondylitis, right elbow (principal); E66.9 Obesity, unspecified; Z68.30 Body mass index [BMI] 30.0-30.9, adult; Z88.1 Allergy status to other antibiotic agents
CPT/HCPCS: 99283